=== PATIENT | female | born 1940 | race Caucasian/White ===

== ENCOUNTER → 2016-09-11 | Outpatient (CLI) | payer MEDICARE, OTHER ==
--- NOTE | 2016-09-12 08:52 | RADONC ---
RADIATION ONCOLOGY FOLLOWUP NOTE DATE: 09/11/2016 CHART NUMBER: [id number] DIAGNOSIS: Left breast cancer STAGE: I A, [id number]. ECOG performance status zero. FOLLOWUP NOTE: Ms. 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 The patient presents today reporting that she is doing quite well with no complaints at this time related to radiation therapy or disease. She has no breast or bone pain. REVIEW OF SYSTEMS: The patient's review of systems is noncontributory. Denies nausea, vomiting, fevers, chills, night sweats, diplopia, headaches, anxiety or depression, anorexia, weight loss, visual disturbances, chest pain, urinary or bowel difficulties, bone pain, or neurological problems. PHYSICAL EXAMINATION: The patient is a well-developed, well-nourished, 75-year-old female in no acute distress. HEENT exam is normocephalic, atraumatic. Extraocular movements are intact. There is no palpable cervical, supraclavicular, infraclavicular, axillary, or inguinal lymphadenopathy present. Lungs are clear to auscultation and percussion. Heart has a regular rate and rhythm. Abdomen is benign with no hepatosplenomegaly, masses, or tenderness. Breast examination reveals no masses or discharge bilaterally. Skeletal examination reveals no tenderness to pressure or percussion of the bony skeleton. Extremities reveal no clubbing, cyanosis, or edema. Neurologic exam is grossly intact, as is the remainder of the physical examination. ASSESSMENT: The patient is clinically MARGARET at this time and will be seen by us again in 6 months for further followup. She will also continue to be followed by her other physicians as well. cc: MD Alize San MD David Rosner, MD MTDD
== END ==
LOC: M ONCR 14:33
PROVIDERS: ATTEND Radiology Radiation Oncology
DX: C50.412 Malignant neoplasm of upper-outer quadrant of left female breast (principal)

== ENCOUNTER → 2017-04-02 | Outpatient (CLI) | payer MEDICARE, OTHER | LOC: M ONCR 13:30 | DX: C50.412 Malignant neoplasm of upper-outer quadrant of left female breast (principal) | CPT/HCPCS: G0463 ==

== ENCOUNTER → 2017-09-24 | Outpatient (CLI) | payer MEDICARE, OTHER | LOC: M ONCR 14:16 | DX: C50.412 Malignant neoplasm of upper-outer quadrant of left female breast (principal) ==

== ENCOUNTER → 2018-09-30 | Outpatient (CLI) | payer MEDICARE, OTHER ==
[~2018-09-30] MED LIST: CALC12504 PO; ESCI20TA PO; FLAX1200 PO; LETR2.5T2 PO; NORT75CA2 PO; PANT40TA3 PO; PROP120C PO; RED1CAP5 PO; TOPI50TA9 PO; TRAM50TA2 PO; ZETI10TA30 PO
--- NOTE | 2018-10-01 11:15 | RADONC ---
RADIATION ONCOLOGY FOLLOWUP NOTE DATE OF SERVICE: 09/30/2018 CHART NUMBER: [id number] DIAGNOSIS: Left breast cancer. STAGE: Stage I A, [id number] ECOG PERFORMANCE STATUS: 0. Mrs. Reynoso is a 77-year-old female with a diagnosis of stage I A, [id number], well differentiated infiltrating ductal carcinoma of the left breast. She presents to us today for a routine followup visit 5 years and 4 months status post completion of her external beam radiotherapy. She has no specific complaints referable to her disease or to her treatments. REVIEW OF SYSTEMS: She denies any nausea, vomiting, coughing, sputum production or hemoptysis. Her energy level is such that she is able to maintain most for day-to-day activities without any significant alteration of her lifestyle. Skin irritation is not reported nor is pain in either breast. The patient had fairly recent mammography in February 2018, which failed to reveal any evidence of recurrence. The remainder of the review of systems is unchanged. EXAMINATION FINDINGS: The skin within the irradiated volume shows no significant changes. There is no palpable lymphadenopathy. Breasts: Bilaterally symmetric with no palpable dominant masses in either breast. Lungs: Clear to auscultation and percussion. Heart: Regular without murmurs. Abdomen: Without evidence of hepatomegaly, masses, deep abdominal tenderness. Extremities: Without cyanosis, clubbing or edema. Neurologic: Examination grossly physiologic and nonfocal. IMPRESSION: The patient is clinically MARGARET at this point and she is seeing Dr. Alize Davis on a routine basis. We would like to see her on an as needed basis if she needs to come back to the clinic. Thank you for allowing us the opportunity of participation in the joint followup care of this fine lady. cc: MD Alize San MD David Rosner, MD
== END ==
LOC: M ONCR 14:00
PROVIDERS: ATTEND Radiology Radiation Oncology
DX: Z08 Encounter for follow-up examination after completed treatment for malignant neoplasm (principal); Z85.3 Personal history of malignant neoplasm of breast; Z92.3 Personal history of irradiation

== ENCOUNTER → 2021-04-02 | Outpatient (CLI) | payer MEDICARE, OTHER ==
[~2021-04-02] MED LIST changes: -CALC12504 PO; +CALC500T61 PO; -ESCI20TA PO; +ESCI20TA16 PO; +FLAX1CAP5 PO; +LEXA1TAB2 PO; +MELO15TA28 PO; +PANT40TA29 PO; -PANT40TA3 PO; +SYNT50TA; +ZETI10TA16 PO; -ZETI10TA30 PO
== END ==
LOC: M WHC 11:38
PROVIDERS: ATTEND Specialist
DX: C50.911 Malignant neoplasm of unspecified site of right female breast (principal)

== ENCOUNTER → 2021-04-20 | Outpatient (CLI) | payer MEDICARE, OTHER ==
[~2021-04-20] MED LIST changes: -SYNT50TA
== END ==
LOC: M WHC 10:47
PROVIDERS: ATTEND Specialist
DX: N63.14 Unspecified lump in the right breast, lower inner quadrant (principal)
CPT/HCPCS: 76642; 77065; G0279

== ENCOUNTER → 2021-05-15 | Outpatient (CLI) | payer MEDICARE, OTHER ==
[~2021-05-15] MED LIST changes: +**SFHN** LIDOCAINE 1% MDV 20ML VIAL ONE; +**SFHN** SODIUM BICARBONATE 8.4% 10MEQ 10ML VIAL ONE; +SYNT50TA
[2021-05-15 13:25] VITALS: BP 138/72
== END ==
LOC: M WHCPRO 12:20
PROVIDERS: ATTEND Specialist
DX: D05.11 Intraductal carcinoma in situ of right breast (principal)

== ENCOUNTER → 2021-06-01 | Outpatient (CLI) | payer MEDICARE, OTHER ==
[~2021-06-01] MED LIST changes: -**SFHN** LIDOCAINE 1% MDV 20ML VIAL ONE; -**SFHN** SODIUM BICARBONATE 8.4% 10MEQ 10ML VIAL ONE; +PANT20TA6 PO; +ROXI1TAB2 PO; -SYNT50TA; +SYNT50TA PO
== END ==
LOC: M WHC 10:02
PROVIDERS: ATTEND Surgery
DX: N63.14 Unspecified lump in the right breast, lower inner quadrant (principal)

== ENCOUNTER → 2021-06-08 | Outpatient (CLI) | payer MEDICARE, OTHER ==
[~2021-06-08] MED LIST changes: -PANT20TA6 PO; +PROHANCE 279.3MG/ML 5ML VIAL As Ordered ONE; -ROXI1TAB2 PO; +SYNT50TA; -SYNT50TA PO
== END ==
LOC: M RAD 13:43
PROVIDERS: ATTEND Specialist
DX: N63.10 Unspecified lump in the right breast, unspecified quadrant (principal); C50.311 Malignant neoplasm of lower-inner quadrant of right female breast
CPT/HCPCS: A9576; C8908

== ENCOUNTER → 2021-06-14 | Outpatient (CLI) | payer MEDICARE, OTHER ==
[~2021-06-14] MED LIST changes: -PROHANCE 279.3MG/ML 5ML VIAL As Ordered ONE; -SYNT50TA; +SYNT50TA PO
== END ==
LOC: M LABSMTC 10:35
PROVIDERS: ATTEND Anesthesiology
DX: Z01.818 Encounter for other preprocedural examination (principal); Z11.52 Encounter for screening for COVID-19

== ENCOUNTER 2021-06-19 07:55 | Day surgery (SDC) | payer MEDICARE, OTHER ==
[~2021-06-19] VITALS: Ht 180.3 cm; Wt 83.2 kg
[~2021-06-19 07:55] MED LIST changes: +HEPARIN SOD (PORCINE) 5000UNITS/ML 1ML VIAL/SYRINGE SQ ONE; +LR 1,000 ML IV ONE; +ceFAZolin SOD 2 GM in IV 1 EA IV ONE
[2021-06-19] MEDS ORDERED: PANT20TA6 PO (08:29)
[2021-06-19] MEDS ORDERED: ONDANSETRON 4MG/2ML VIAL As Ordered ONE (09:02)
[2021-06-19] MEDS ORDERED: LIDOCAINE 2% 100MG/5ML SDV (FOR ANES.) As Ordered ONE (09:02)
[2021-06-19] MEDS ORDERED: fentaNYL 100 MCG/2 ML INJECTION As Ordered ONE (09:02)
[2021-06-19] MEDS ORDERED: MIDAZOLAM INJ 2MG/2ML VIAL (J2250 PER 1MG) As Ordered ONE (09:02)
[2021-06-19] MEDS ORDERED: dexameTHASONE 4 MG/ML 1ML VIAL (J1100 PER 1MG) As Ordered ONE (09:02)
[2021-06-19] MEDS ORDERED: propofoL 200 MG/20 ML VIAL As Ordered ONE (09:02)
[2021-06-19] MEDS ORDERED: BUPIVACAINE HCL 0.25% 30ML VIAL As Ordered ONE (10:17)
[2021-06-19] MEDS ORDERED: LIDOCAINE 1% SDV 30ML VIAL As Ordered ONE (10:17)
[2021-06-19] MEDS ORDERED: ePHEDrine SULFATE 25 MG/5 ML(5MG/ML) SYRINGE As Ordered ONE ×2 (11:09→11:43)
[2021-06-19] MEDS ORDERED: ePHEDrine INJ 50 MG/ML VIAL As Ordered ONE (11:44)
[2021-06-19] MEDS ORDERED: ACETAMINOPHEN 1000MG 100ML IV BTL (OFIRMEV) (J0131 PER 10MG) As Ordered ONE (11:47)
[2021-06-19] MEDS ORDERED: ROXI1TAB2 PO (12:39)
[2021-06-19] MEDS ORDERED: fentaNYL 100 MCG/2 ML INJECTION IV PRN (13:00)
[2021-06-19] MEDS ORDERED: LR 1,000 ML IV SCH (13:00)
[2021-06-19] MEDS ORDERED: oxyCODONE 5MG TAB PO PRN (13:00)
[2021-06-19] MEDS ORDERED: ONDANSETRON 4MG/2ML VIAL IV PRN (13:00)
[2021-06-19 13:59] VITALS: BP 130/68
== END 2021-06-19 14:28 | disposition home or self-care (01) ==
LOC: M SDC 07:55
PROVIDERS: ATTEND Surgery
DX: D05.11 Intraductal carcinoma in situ of right breast (principal); E03.9 Hypothyroidism, unspecified; I10 Essential (primary) hypertension; K21.9 Gastro-esophageal reflux disease without esophagitis; M17.0 Bilateral primary osteoarthritis of knee; Z79.899 Other long term (current) drug therapy
CPT/HCPCS: 19301; 36415; 76942; 86850; 86900; 86901; 88305; 88307; J0131; J0690; J1100; J1644; J2250; J2405; J3010

== ENCOUNTER → 2021-07-10 | Outpatient (CLI) | payer MEDICARE, OTHER ==
[~2021-07-10] MED LIST changes: -HEPARIN SOD (PORCINE) 5000UNITS/ML 1ML VIAL/SYRINGE SQ ONE; -LR 1,000 ML IV ONE; +PANT20TA6 PO; +ROXI1TAB2 PO; -ceFAZolin SOD 2 GM in IV 1 EA IV ONE
== END ==
LOC: M ONCR 10:40
PROVIDERS: ATTEND General Practice
DX: C50.912 Malignant neoplasm of unspecified site of left female breast (principal); I26.99 Other pulmonary embolism without acute cor pulmonale; Z80.0 Family history of malignant neoplasm of digestive organs; Z80.3 Family history of malignant neoplasm of breast; Z85.3 Personal history of malignant neoplasm of breast; Z92.3 Personal history of irradiation; Z99.81 Dependence on supplemental oxygen

== ENCOUNTER 2021-07-19 07:21 | Outpatient (RCR) | payer MEDICARE, OTHER ==
[2021-07-25] MEDS ORDERED: ELIQ5TAB (15:09)
== END 2021-08-04 ==
LOC: M ONCR 07:21
PROVIDERS: ATTEND General Practice
DX: C50.511 Malignant neoplasm of lower-outer quadrant of right female breast (principal)

== ENCOUNTER 2021-08-10 12:00 | Outpatient (RCR) | payer MEDICARE, OTHER ==
[~2021-08-10 12:00] MED LIST changes: +ELIQ5TAB
[2021-08-24] MEDS ORDERED: ANAS1TAB2 PO (15:49)
== END 2021-09-04 ==
LOC: M ONCR 12:00
PROVIDERS: ATTEND General Practice
DX: C50.511 Malignant neoplasm of lower-outer quadrant of right female breast (principal)

== ENCOUNTER → 2021-10-24 | Outpatient (CLI) | payer MEDICARE, OTHER ==
[~2021-10-24] MED LIST changes: +ANAS1TAB2 PO
== END ==
LOC: M WHC 08:54
PROVIDERS: ATTEND Internal Medicine Medical Oncology
DX: Z13.820 Encounter for screening for osteoporosis (principal); M85.89 Other specified disorders of bone density and structure, multiple sites

== ENCOUNTER 2021-12-18 11:28 | Emergency (ER) | payer MEDICARE, OTHER ==
[~2021-12-18] VITALS: Ht 180.3 cm; Wt 81.8 kg
[2021-12-18] MEDS ORDERED: ISOVUE-370 76% 100ML VIAL As Ordered ONE (14:25)
[2021-12-18 14:27] LABS: BASO # 0.1 10^3/uL (0.0-0.2); BASO % 0.8 % (0.0-1.0); EOS # 0.3 10^3/uL (0.0-0.5); EOS % 4.8 % (0.0-3.0); HEMATOCRIT 42.8 % (36.0-47.0); HEMOGLOBIN 13.4 g/dl (12.0-15.5); LYMPH # 1.8 10^3/uL (1.5-5.0); LYMPH % 28.1 % (24.0-44.0); MEAN CORPUSCULAR HEMOGLOBIN 29.9 pg (27.0-33.0); MEAN CORPUSCULAR HGB CONC 31.3 g/dl (32.0-36.5); MEAN CORPUSCULAR VOLUME 95.5 fl (80.0-96.0); MONO # 0.5 10^3/uL (0.0-0.8); MONO % 7.3 % (2.0-8.0); NEUTROPHILS # 3.8 10^3/uL (1.5-8.5); NEUTROPHILS % 58.7 % (36.0-66.0); PLATELET COUNT, AUTOMATED 154 10^3/uL (150-450); RED BLOOD COUNT 4.48 10^6/uL (4.00-5.40); WHITE BLOOD COUNT 6.4 10^3/uL (4.0-10.0)
[2021-12-18 14:43] LABS: INR 1.1; PARTIAL THROMBOPLASTIN TIME 27.8 SECONDS (25.9-37.0); PROTHROMBIN TIME 14.6 SECONDS (12.7-14.5)
[2021-12-18 15:27] VITALS: BP 158/74
== END 2021-12-18 15:27 | disposition home or self-care (01) ==
LOC: M ED 11:28
DX: R91.8 Other nonspecific abnormal finding of lung field (principal); Z85.3 Personal history of malignant neoplasm of breast; Z86.711 Personal history of pulmonary embolism; Z79.899 Other long term (current) drug therapy; Z79.01 Long term (current) use of anticoagulants
CPT/HCPCS: 36415; 71275; 80047; 85025; 85610; 85730; 99284; Q9967

== ENCOUNTER → 2021-12-18 | Outpatient (CLI) | payer MEDICARE, OTHER | LOC: M CARPUL 09:20 | PROVIDERS: ATTEND Internal Medicine Critical Care Medicine | DX: Z99.81 Dependence on supplemental oxygen (principal); R92.8 Other abnormal and inconclusive findings on diagnostic imaging of breast ==

== ENCOUNTER → 2022-03-12 | Outpatient (CLI) | payer MEDICARE, OTHER | LOC: M ONCR 14:38 | PROVIDERS: ATTEND General Practice | DX: C50.912 Malignant neoplasm of unspecified site of left female breast (principal); R06.02 Shortness of breath; R91.8 Other nonspecific abnormal finding of lung field; Z79.01 Long term (current) use of anticoagulants; Z79.811 Long term (current) use of aromatase inhibitors; Z79.899 Other long term (current) drug therapy; Z92.3 Personal history of irradiation ==

== ENCOUNTER → 2022-04-04 | Outpatient (CLI) | payer MEDICARE, OTHER | LOC: M WHC 10:06 | PROVIDERS: ATTEND Nurse Practitioner Women's Health | DX: C50.311 Malignant neoplasm of lower-inner quadrant of right female breast (principal) | CPT/HCPCS: 77066; G0279 ==

== ENCOUNTER → 2023-05-12 | Outpatient (CLI) | payer MEDICARE, OTHER ==
[~2023-05-12] MED LIST changes: +ALDA25TA2 PO; +BUTA1CAP; +EZET10TA58 PO; +LASI20TA3 PO; +PRED10TA2; +SILD20TA11; +TOPI-21 PO; -TOPI50TA9 PO; -ZETI10TA16 PO
== END ==
LOC: M WHC 14:04
PROVIDERS: ATTEND Nurse Practitioner Women's Health
DX: C50.311 Malignant neoplasm of lower-inner quadrant of right female breast (principal)

== ENCOUNTER → 2023-06-05 | Outpatient (CLI) | payer MEDICARE, OTHER ==
[2023-06-05 10:00] VITALS: TEMP 97
[2023-06-05 11:15] VITALS: BP 112/68; O2SAT 98
== END ==
LOC: M WHCPRO 09:33
PROVIDERS: ATTEND Nurse Practitioner Women's Health
DX: R92.8 Other abnormal and inconclusive findings on diagnostic imaging of breast (principal); N63.13 Unspecified lump in the right breast, lower outer quadrant
CPT/HCPCS: 19083; 77065; 88305; G0463

== ENCOUNTER → 2023-11-19 | Outpatient (CLI) | payer MEDICARE, OTHER ==
[~2023-11-19] MED LIST changes: +LETAIRIS; +[UNRECOGNIZED DRUG - CODE]
== END ==
LOC: M ONCR 11-11 13:33
PROVIDERS: ATTEND General Practice
DX: Z08 Encounter for follow-up examination after completed treatment for malignant neoplasm (principal); Z85.3 Personal history of malignant neoplasm of breast; Z92.3 Personal history of irradiation; Z79.818 Long term (current) use of other agents affecting estrogen receptors and estrogen levels; Z79.01 Long term (current) use of anticoagulants; Z79.899 Other long term (current) drug therapy

== ENCOUNTER → 2023-12-09 | Outpatient (CLI) | payer MEDICARE, OTHER | LOC: M WHC 14:09 | PROVIDERS: ATTEND Nurse Practitioner Women's Health | DX: R92.8 Other abnormal and inconclusive findings on diagnostic imaging of breast (principal) | CPT/HCPCS: 77065; G0279 ==

== ENCOUNTER → 2024-04-19 | Outpatient (REF) | payer MEDICARE, OTHER | LOC: M SFHCDERM 16:46 | PROVIDERS: ATTEND Nurse Practitioner Family | DX: C44.212 Basal cell carcinoma of skin of right ear and external auricular canal (principal); L82.0 Inflamed seborrheic keratosis ==

== ENCOUNTER 2024-06-06 13:40 | Observation (INO) | payer MEDICARE, OTHER ==
[~2024-06-06] VITALS: Ht 180.3 cm; Wt 77.3 kg
[~2024-06-06 13:40] MED LIST changes: +CYAN1000VL; -ELIQ5TAB; +ELIQ5TAB PO; -[UNRECOGNIZED DRUG - CODE]; +[UNRECOGNIZED DRUG - CODE] PO
[2024-06-06] MEDS: NS (Normal Saline) 0.9% 1,000 ML IV ONE ×2 (14:17→16:13)
[2024-06-06 14:26] LABS: BASO % 0.2 % (0.0-1.0); EOS # 0.2 10^3/uL (0.0-0.5); EOS % 2.9 % (0.0-3.0); HEMATOCRIT 31.2 % (36.0-47.0); LYMPH # 1.6 10^3/uL (1.5-5.0); LYMPH % 25.4 % (24.0-44.0); MEAN CORPUSCULAR HEMOGLOBIN 31.1 pg (27.0-33.0); MEAN CORPUSCULAR HGB CONC 32.1 g/dl (32.0-36.5); MEAN CORPUSCULAR VOLUME 96.9 fl (80.0-96.0); MONO # 0.3 10^3/uL (0.0-0.8); NEUTROPHILS % 65.8 % (36.0-66.0); PLATELET COUNT, AUTOMATED 169 10^3/uL (150-450); RED BLOOD COUNT 3.22 10^6/uL (4.00-5.40); WHITE BLOOD COUNT 6.1 10^3/uL (4.0-10.0)
[2024-06-06 15:00] LABS: CALCIUM LEVEL 7.4 MG/DL (8.3-10.6); CREATININE FOR GFR 1.56 MG/DL (0.55-1.30); GLOMERULAR FILTRATION RATE 33.7 (>32); MAGNESIUM LEVEL 1.8 MG/DL (1.8-2.4); POTASSIUM SERUM 3.1 MMOL/L (3.5-5.1)
[2024-06-06 16:18] LABS: PHOSPHORUS LEVEL 2.6 MG/DL (2.4-5.1)
[2024-06-06 16:20] LABS: PTH INTACT 50.8 PG/ML (18.5-88.0)
[2024-06-06 16:21] LABS: TOTAL 25(OH) VITAMIN D 59.5 NG/ML (20.0-100.0)
[2024-06-06] MEDS: KCL 10MEQ/100ML SWI (KRUN) 10 MEQ in IV 1 EA IV ONE (16:33)
[2024-06-06] MEDS ORDERED: LETA1TAB PO (18:26)
[2024-06-06] MEDS ORDERED: TOPI-21 PO (18:26)
[2024-06-06] MEDS ORDERED: ANAS1TAB2 PO (18:26)
[2024-06-06] MEDS ORDERED: HOME MED LIST COMPLETE! XX SCH (18:30)
[2024-06-06] MEDS: MAG SULF 1GM/100ML (MAG RUN) 1 GM in IV 1 EA IV ONE (18:49)
[2024-06-06 18:58] LABS: PERCENT SATURATION 20.7 % (13.2-45.0)
[2024-06-06 19:01] LABS: FERRITIN 53.2 NG/ML (7.3-270.7)
[2024-06-06 20:00] LABS: HEMATOCRIT 31.9 % (36.0-47.0); MEAN CORPUSCULAR HEMOGLOBIN 30.3 pg (27.0-33.0); MEAN CORPUSCULAR HGB CONC 31.3 g/dl (32.0-36.5); MEAN CORPUSCULAR VOLUME 96.7 fl (80.0-96.0); PLATELET COUNT, AUTOMATED 172 10^3/uL (150-450); WHITE BLOOD COUNT 5.8 10^3/uL (4.0-10.0)
[2024-06-06] MEDS: PANTOPRAZOLE 40MG VIAL IV SCH (20:46)
[2024-06-06] MEDS: NORTRIPTYLINE 25 MG CAP PO SCH (20:46)
[2024-06-06] MEDS: TOPIRAMATE (TopAMAX) 25 MG TAB PO SCH (20:47)
[2024-06-07] MEDS ORDERED: ACETAMINOPHEN 325 MG TAB PO PRN (00:50)
[2024-06-07] MEDS: POTASSIUM CHLORIDE 10MEQ SR TABLET PO SCH ×2 (01:00→10:04)
[2024-06-07 01:51] LABS: HEMATOCRIT 29.8 % (36.0-47.0); HEMOGLOBIN 9.3 g/dl (12.0-15.5); MEAN CORPUSCULAR HEMOGLOBIN 30.1 pg (27.0-33.0); MEAN CORPUSCULAR HGB CONC 31.2 g/dl (32.0-36.5); MEAN CORPUSCULAR VOLUME 96.4 fl (80.0-96.0); PLATELET COUNT, AUTOMATED 148 10^3/uL (150-450); RED BLOOD COUNT 3.09 10^6/uL (4.00-5.40); WHITE BLOOD COUNT 4.7 10^3/uL (4.0-10.0)
[2024-06-07] MEDS: LEVOTHYROXINE 50MCG TABLET (0.05MG) PO SCH (05:24)
[2024-06-07 06:52] LABS: CALCIUM LEVEL 7.7 MG/DL (8.3-10.6); CREATININE FOR GFR 1.28 MG/DL (0.55-1.30); GLOMERULAR FILTRATION RATE 42.4 (>32); POTASSIUM SERUM 3.2 MMOL/L (3.5-5.1)
[2024-06-07 08:37] LABS: HEMATOCRIT 30.1 % (36.0-47.0); HEMOGLOBIN 9.5 g/dl (12.0-15.5); MEAN CORPUSCULAR HEMOGLOBIN 30.8 pg (27.0-33.0); MEAN CORPUSCULAR HGB CONC 31.6 g/dl (32.0-36.5); MEAN CORPUSCULAR VOLUME 97.7 fl (80.0-96.0); PLATELET COUNT, AUTOMATED 176 10^3/uL (150-450); RED BLOOD COUNT 3.08 10^6/uL (4.00-5.40); WHITE BLOOD COUNT 4.7 10^3/uL (4.0-10.0)
[2024-06-07] MEDS: EZETIMIBE 10MG TABLET (ZETIA) PO SCH (08:40)
[2024-06-07] MEDS: ESCITALOPRAM OXALATE 10 MG TAB (LEXAPRO) PO SCH (08:40)
[2024-06-07] MEDS: TOPIRAMATE (TopAMAX) 25 MG TAB PO SCH (08:40)
[2024-06-07] MEDS: OYSTER SHELL CALCIUM 500 MG TAB PO SCH (08:40)
[2024-06-07] MEDS: IRON SUCROSE 100MG 5ML VIAL IV ONE (08:41)
[2024-06-07] MEDS ORDERED: ANASTRAZOLE 1MG TABLET (PATIENT'S OWN MED) PO SCH (09:00)
[2024-06-07 12:08] LABS: HEMATOCRIT 31.5 % (36.0-47.0); HEMOGLOBIN 9.8 g/dl (12.0-15.5); MEAN CORPUSCULAR HEMOGLOBIN 30.5 pg (27.0-33.0); MEAN CORPUSCULAR HGB CONC 31.1 g/dl (32.0-36.5); MEAN CORPUSCULAR VOLUME 98.1 fl (80.0-96.0); PLATELET COUNT, AUTOMATED 158 10^3/uL (150-450); RED BLOOD COUNT 3.21 10^6/uL (4.00-5.40); WHITE BLOOD COUNT 4.9 10^3/uL (4.0-10.0)
[2024-06-07 12:42] LABS: CALCIUM LEVEL 7.8 MG/DL (8.3-10.6); CREATININE FOR GFR 1.17 MG/DL (0.55-1.30)
[2024-06-07] MEDS ORDERED: PANT40TA29 PO (14:09)
[2024-06-07 15:01] VITALS: BP 108/53
[2024-06-07 15:45] VITALS: TEMP 96.9; O2SAT 96
[2024-06-07] MEDS: LETAIRIS 10 MG PO SCH (15:45)
[2024-06-07] MEDS: ADEMPAS 2.5 MG PO SCH (15:45)
== END 2024-06-07 16:40 | disposition home or self-care (01) ==
LOC: EDBD 13:40 → M ED 13:40 → M ED INP 13:41
PROVIDERS: ADMIT Student in an Organized Health Care Education/Training Program; ATTEND Student in an Organized Health Care Education/Training Program
DX: K92.2 Gastrointestinal hemorrhage, unspecified (principal); R19.7 Diarrhea, unspecified; R53.1 Weakness; I95.9 Hypotension, unspecified; D50.9 Iron deficiency anemia, unspecified; N17.9 Acute kidney failure, unspecified; E87.6 Hypokalemia; I27.24 Chronic thromboembolic pulmonary hypertension; Z99.81 Dependence on supplemental oxygen; Z86.711 Personal history of pulmonary embolism; G25.0 Essential tremor; Z85.3 Personal history of malignant neoplasm of breast; F39 Unspecified mood [affective] disorder; E03.9 Hypothyroidism, unspecified; E78.5 Hyperlipidemia, unspecified; K21.9 Gastro-esophageal reflux disease without esophagitis; Z79.899 Other long term (current) drug therapy; Z79.01 Long term (current) use of anticoagulants; Z79.890 Hormone replacement therapy; Z66 Do not resuscitate
CPT/HCPCS: 36415; 71045; 80048; 82306; 82330; 82652; 82728; 83540; 83550; 83735; 83970; 84100; 84466; 85025; 85027; 86850; 86900; 86901; 87486; 87581; 87633; 87798; 93005; 93041; 96361; 96365; 96375; 96376; 97116; 97161; 99285; G0378; J1756; J2470; J3475

== ENCOUNTER → 2024-07-06 | Outpatient (CLI) | payer MEDICARE, OTHER ==
[~2024-07-06] MED LIST changes: +LETA1TAB PO
== END ==
LOC: M WHC 12:35
PROVIDERS: ATTEND Specialist
DX: Z12.31 Encounter for screening mammogram for malignant neoplasm of breast (principal); M81.0 Age-related osteoporosis without current pathological fracture

== ENCOUNTER → 2024-11-18 | Outpatient (CLI) | payer MEDICARE, OTHER | LOC: M ONCR 13:05 | PROVIDERS: ATTEND General Practice | DX: Z08 Encounter for follow-up examination after completed treatment for malignant neoplasm (principal); Z79.811 Long term (current) use of aromatase inhibitors; Z79.899 Other long term (current) drug therapy; Z85.3 Personal history of malignant neoplasm of breast; Z92.3 Personal history of irradiation ==

== ENCOUNTER → 2024-11-18 | Outpatient (REF) | payer MEDICARE, OTHER ==
[2024-11-18 18:50] LABS: PLATELET COUNT, AUTOMATED 201 10^3/uL (150-450)
[2024-11-18 19:11] LABS: CALCIUM LEVEL 9.2 MG/DL (8.3-10.6); CARBON DIOXIDE LEVEL 31.0 MMOL/L (20-31); CHLORIDE LEVEL 104.0 MMOL/L (98-107); CREATININE FOR GFR 1.16 MG/DL (0.55-1.30); GLOMERULAR FILTRATION RATE 46.5 (>32); IRON (FE) 28.0 UG/DL (50-170); PERCENT SATURATION 12.0 % (13.2-45.0); POTASSIUM SERUM 4.8 MMOL/L (3.5-5.1); SODIUM LEVEL 144.0 MMOL/L (136-145)
== END ==
LOC: M LABWUC 17:16
PROVIDERS: ATTEND Nurse Practitioner Acute Care
DX: I50.810 Right heart failure, unspecified (principal); Z08 Encounter for follow-up examination after completed treatment for malignant neoplasm; Z79.811 Long term (current) use of aromatase inhibitors; Z79.899 Other long term (current) drug therapy; Z85.3 Personal history of malignant neoplasm of breast; Z92.3 Personal history of irradiation
CPT/HCPCS: 36415; 80048; 82728; 83550; 83880; 85027; G0463

== ENCOUNTER → 2025-03-14 | Outpatient (CLI) | payer MEDICARE, OTHER ==
[~2025-03-14] MED LIST changes: +FURO20TA2; -SILD20TA11; +SILD20TA64; +SPIR-10
== END ==
LOC: M WHC 13:58
PROVIDERS: ATTEND Student in an Organized Health Care Education/Training Program
DX: N95.0 Postmenopausal bleeding (principal)

== ENCOUNTER → 2025-03-24 | Outpatient (REF) | payer MEDICARE, OTHER | LOC: M SFHCDERM 17:18 | PROVIDERS: ATTEND Nurse Practitioner Family | DX: C44.719 Basal cell carcinoma of skin of left lower limb, including hip (principal) ==